=== PATIENT | female | born 1955 | race Asian ===

== ENCOUNTER → 2017-01-04 | Outpatient (CLI) | payer MEDICAID ==
[~2017-01-04] MED LIST: ALBI30PE SQ; AMIO200T42 PO; AMLO10TA2 PO; AMLO2.5T PO; ASPI-515 PO; ATOR20TA9 PO; CARV6.252 PO; ERGO500017 PO; FURO40TA6 PO; HYDR25TA6 PO; INSU100V8 SQ; ISOS20TA3 PO; LISI-170 PO; LORA10TA3 PO; METF850T2 PO; METO25TA35 PO; ONDA4TAB10 PO; POTA20TA14 PO; SIMV20TA PO; SITA25TA PO; WARF2.5T73 PO; WARF2TAB7 PO-COUM; WARF5TAB7 PO
== END | disposition home or self-care (01) ==
LOC: CFH 10:12
PROVIDERS: ATTEND Internal Medicine Cardiovascular Disease
DX: I10 Essential (primary) hypertension (principal); I48.0 Paroxysmal atrial fibrillation
CPT/HCPCS: 93306